=== PATIENT | female | born 1940 | race Caucasian/White ===

== ENCOUNTER 2017-04-27 10:44 | Outpatient (CLI) | payer OTHER ==
[~2017-04-27 10:44] MED LIST: ASA81 MG; BENADRYL50 MG; HYZAAR 100/25 T1 TAB PO; INDUR; INDUSTRIAL EYE15 ML OP; LIPITOR20 MG; NORVASC5 MG; PAXIL20 MG; PLAVIX75 MG PO; PNEU16DI2; PROTONIX40 MG; RESTORIL15 M1; SYNTHROID100 MCG; TOPROL XL50 M1; ULTRAM50 MG PO; ZITHROMAX500 MG PO; ZYRTEC10 MG PO
== END 2017-04-27 15:21 | disposition home or self-care (01) ==
LOC: RAD 10:44
DX: I10 Essential (primary) hypertension (principal)

== ENCOUNTER 2018-03-03 23:30 | Emergency (ER) | payer OTHER ==
[~2018-03-03] VITALS: Ht 162.6 cm; Wt 99.8 kg
[2018-03-04] MEDS ORDERED: ZOFRAN ODT4 MG PO (06:37)
[2018-03-04] MEDS ORDERED: PEPCID40 MG PO (06:37)
== END 2018-03-04 07:26 | disposition home or self-care (01) ==
LOC: ER 23:30
DX: K29.60 Other gastritis without bleeding (principal); R10.84 Generalized abdominal pain

== ENCOUNTER 2018-05-10 16:07 | Emergency (ER) | payer OTHER ==
[~2018-05-10] VITALS: Ht 162.6 cm; Wt 99.8 kg
[~2018-05-10 16:07] MED LIST changes: +PEPCID40 MG PO; +ZOFRAN ODT4 MG PO
== END 2018-05-10 20:14 | disposition home or self-care (01) ==
LOC: ER 16:07
DX: S20.211A Contusion of right front wall of thorax, initial encounter (principal); S80.01XA Contusion of right knee, initial encounter; W18.09XA Striking against other object with subsequent fall, initial encounter; Y93.89 Activity, other specified; Y92.018 Other place in single-family (private) house as the place of occurrence of the external cause; Y99.8 Other external cause status

== ENCOUNTER 2018-09-06 13:34 | Outpatient (CLI) | payer OTHER | END 2018-09-06 13:46 | disposition home or self-care (01) | LOC: TOM 13:34 | DX: J44.9 Chronic obstructive pulmonary disease, unspecified (principal) ==

== ENCOUNTER 2019-02-23 08:03 | Emergency (ER) | payer OTHER ==
[~2019-02-23] VITALS: Ht 160 cm; Wt 99.8 kg
[2019-02-23] MEDS ORDERED: XOPENEX CO1.25 MG/0. IH (17:19)
[2019-02-23] MEDS ORDERED: BUDESONIDE0.5 MG/2 M IH (17:19)
[2019-02-23] MEDS ORDERED: MEDROLPACK PO (17:19)
[2019-02-23] MEDS ORDERED: TESSALON PERLE100 M1 PO (17:19)
[2019-02-23] MEDS ORDERED: IPRATROPIU0.2 MG/1 M IH (17:19)
[2019-02-23] MEDS ORDERED: ZITHROMAX500 MG PO (17:19)
[2019-02-23] MEDS ORDERED: MUCINEX DM ER1 EAC1 PO (17:19)
== END 2019-02-23 17:25 ==
LOC: ER 08:03
DX: J45.901 Unspecified asthma with (acute) exacerbation (principal)

== ENCOUNTER 2019-03-03 18:07 | Emergency (ER) | payer OTHER ==
[~2019-03-03] VITALS: Ht 162.6 cm; Wt 105.2 kg
[~2019-03-03 18:07] MED LIST changes: +BUDESONIDE0.5 MG/2 M IH; +IPRATROPIU0.2 MG/1 M IH; +MEDROLPACK PO; +MUCINEX DM ER1 EAC1 PO; +TESSALON PERLE100 M1 PO; +XOPENEX CO1.25 MG/0. IH
== END 2019-03-03 23:54 | disposition home or self-care (01) ==
LOC: ER 18:07
DX: J45.901 Unspecified asthma with (acute) exacerbation (principal)

== ENCOUNTER 2019-08-11 12:15 | Emergency (ER) | payer OTHER ==
[~2019-08-11] VITALS: Ht 162.6 cm; Wt 102.1 kg
[2019-08-11] MEDS ORDERED: LEVO-T100 MCG PO (12:43)
[2019-08-11] MEDS ORDERED: LOSARTAN POTAS100 MG PO (12:43)
[2019-08-11] MEDS ORDERED: PROAIR HFA8.5 GM IH (12:43)
[2019-08-11] MEDS ORDERED: LASIX20 MG PO (12:43)
== END 2019-08-11 23:49 | disposition home or self-care (01) ==
LOC: ER 12:15
DX: R10.11 Right upper quadrant pain (principal); K76.89 Other specified diseases of liver

== ENCOUNTER 2020-06-30 17:36 | Emergency (ER) | payer OTHER ==
[~2020-06-30] VITALS: Ht 162.6 cm; Wt 102.1 kg
[~2020-06-30 17:36] MED LIST changes: +LASIX20 MG PO; +LEVO-T100 MCG PO; +LOSARTAN POTAS100 MG PO; +PROAIR HFA8.5 GM IH
== END 2020-07-01 12:46 | disposition home or self-care (01) ==
LOC: ER 17:36
DX: I87.2 Venous insufficiency (chronic) (peripheral) (principal); M79.605 Pain in left leg; R60.0 Localized edema

== ENCOUNTER 2021-06-21 23:08 | Inpatient (IN) | payer OTHER ==
[~2021-06-21] VITALS: Ht 152.4 cm; Wt 68.0 kg
[2021-06-22] MEDS ORDERED: WIXELA 250-501 EACH (14:12)
[2021-06-22] MEDS ORDERED: HUMULIN 70100 UNIT/1 (14:13)
[2021-06-22] MEDS ORDERED: SIMVASTATIN40 MG (14:13)
[2021-06-22] MEDS ORDERED: CITALOPRAM HBR20 MG (14:13)
[2021-06-22] MEDS ORDERED: CLOPIDOGREL BIS75 MG (14:13)
[2021-06-22] MEDS ORDERED: ST. JOSEPH ASPI81 M2 (14:14)
[2021-06-22] MEDS ORDERED: AMLODIPINE BESYL5 MG (14:14)
[2021-06-22] MEDS ORDERED: ISOSORBIDE MONO60 M2 (14:14)
[2021-06-22] MEDS ORDERED: ALENDRONATE SOD70 MG (14:14)
[2021-06-22] MEDS ORDERED: HYDROCHLOROTHIA25 MG (14:15)
[2021-06-22] MEDS ORDERED: LISINOPRIL10 MG (14:15)
[2021-06-22] MEDS ORDERED: FAMOTIDINE20 MG (14:15)
[2021-07-05] MEDS ORDERED: MEDROLPACK PO (10:35)
== END 2021-07-05 16:28 | disposition home or self-care (01) | DRG 202 ==
LOC: ER 23:08 → MEDJ 06-22 09:21 → MEDI 06-27 23:10
PROVIDERS: ADMIT Internal Medicine; ATTEND Internal Medicine
PROC: B24BZZZ Ultrasonography of Heart with Aorta (ICD-10-PCS; principal; 2021-06-23)
PROC: 4A12X4Z Monitoring of Cardiac Electrical Activity, External Approach (ICD-10-PCS; 2021-06-27)
DX: J45.51 Severe persistent asthma with (acute) exacerbation (principal); I47.1 Supraventricular tachycardia; R06.02 Shortness of breath; R07.89 Other chest pain; I25.10 Atherosclerotic heart disease of native coronary artery without angina pectoris; I10 Essential (primary) hypertension; E03.8 Other specified hypothyroidism; Z20.822 Contact with and (suspected) exposure to COVID-19; E78.49 Other hyperlipidemia; E66.01 Morbid (severe) obesity due to excess calories

== ENCOUNTER 2022-02-19 10:15 | Emergency (ER) | payer OTHER ==
[~2022-02-19] VITALS: Ht 160 cm; Wt 102.1 kg
[~2022-02-19 10:15] MED LIST changes: +ALENDRONATE SOD70 MG; +AMLODIPINE BESYL5 MG; +CITALOPRAM HBR20 MG; +CLOPIDOGREL BIS75 MG; +FAMOTIDINE20 MG; +HUMULIN 70100 UNIT/1; +HYDROCHLOROTHIA25 MG; +ISOSORBIDE MONO60 M2; +LISINOPRIL10 MG; +SIMVASTATIN40 MG; +ST. JOSEPH ASPI81 M2; +WIXELA 250-501 EACH
== END 2022-02-19 15:44 | disposition home or self-care (01) ==
LOC: ER 10:15
DX: J18.9 Pneumonia, unspecified organism (principal); Z20.822 Contact with and (suspected) exposure to COVID-19; I10 Essential (primary) hypertension; E03.9 Hypothyroidism, unspecified; Z91.013 Allergy to seafood; Z88.2 Allergy status to sulfonamides; Z88.5 Allergy status to narcotic agent; Z88.0 Allergy status to penicillin; Z91.018 Allergy to other foods

== ENCOUNTER 2022-08-19 15:35 | Emergency (ER) | payer OTHER ==
[~2022-08-19] VITALS: Ht 162.6 cm; Wt 100.7 kg
[2022-08-19] MEDS ORDERED: SYNTHROID100 MCG PO (16:02)
== END 2022-08-19 19:03 | disposition home or self-care (01) ==
LOC: ER 15:35
DX: R05.9 Cough, unspecified (principal); Z88.0 Allergy status to penicillin; Z91.041 Radiographic dye allergy status; Z91.013 Allergy to seafood; Z91.018 Allergy to other foods; Z20.822 Contact with and (suspected) exposure to COVID-19

== ENCOUNTER 2022-08-21 14:01 | Inpatient (IN) | payer OTHER ==
[~2022-08-21] VITALS: Ht 162.6 cm; Wt 102.1 kg
[~2022-08-21 14:01] MED LIST changes: +SYNTHROID100 MCG PO
[2022-08-22] MEDS ORDERED: BUDESONIDE0.5 MG/21 (10:17)
[2022-08-22] MEDS ORDERED: HUMULIN 70100 UNIT/1 (10:17)
[2022-08-22] MEDS ORDERED: CYCLOBENZAPRINE10 MG (10:18)
[2022-08-22] MEDS ORDERED: DICYCLOMINE HCL20 MG (10:18)
[2022-08-22] MEDS ORDERED: LISINOPRIL10 MG (10:18)
[2022-08-22] MEDS ORDERED: PANTOPRAZOLE SO40 MG (10:19)
[2022-08-22] MEDS ORDERED: CARVEDILOL6.25 M1 (10:19)
[2022-08-22] MEDS ORDERED: WIXELA 250-501 EACH (10:19)
[2022-08-22] MEDS ORDERED: ST. JOSEPH ASPI81 M2 (10:20)
== END 2022-08-24 18:42 | disposition home or self-care (01) | DRG 203 ==
LOC: ER 14:01 → MEDJ 21:07
PROVIDERS: ADMIT Specialist; ATTEND Specialist
PROC: B24BZZZ Ultrasonography of Heart with Aorta (ICD-10-PCS; principal; 2022-08-22)
DX: J45.901 Unspecified asthma with (acute) exacerbation (principal); I25.10 Atherosclerotic heart disease of native coronary artery without angina pectoris; I11.9 Hypertensive heart disease without heart failure; E03.9 Hypothyroidism, unspecified; J20.9 Acute bronchitis, unspecified; E66.01 Morbid (severe) obesity due to excess calories

== ENCOUNTER 2023-04-12 22:52 | Emergency (ER) | payer OTHER ==
[~2023-04-12] VITALS: Ht 152.4 cm; Wt 99.8 kg
[~2023-04-12 22:52] MED LIST changes: +BUDESONIDE0.5 MG/21; +CARVEDILOL6.25 M1; +CYCLOBENZAPRINE10 MG; +DICYCLOMINE HCL20 MG; +PANTOPRAZOLE SO40 MG
[2023-04-13] MEDS ORDERED: RINGERS SOLUTION,LACTATED 1,000 ML IV STA (00:12)
[2023-04-13] MEDS ORDERED: KETOROLAC TROMETHAMINE 30 MG VIAL IV STA (00:13)
[2023-04-13] MEDS ORDERED: HYOSCYAMINE SULFATE 0.125 MG TAB.SUBL SL STA (00:13)
[2023-04-13] MEDS ORDERED: LOPERAMIDE HCL 2 MG CAPSULE PO STA (00:16)
[2023-04-13 01:01] LABS: HEMATOCRIT 38.9 % (36.0-45.00); HEMOGLOBIN 13.2 g/dL (12.0-15.00); MEAN CELL VOLUME 84.5 fL (80.00-100.00); MEAN CORPUSCULAR HEMOGLOBIN 28.7 pg (27.00-32.0); PLATELET COUNT 241 K/uL (150-450)
[2023-04-13 01:42] LABS: ALBUMIN 3.3 gm/dL (3.4-5.0); BILIRUBIN TOTAL 0.46 mg/dL (0.3-1.2); CALCIUM 8.5 mg/dL (8.5-10.1); CREATININE SERUM 1.31 mg/dL (0.55-1.02); GFR 38.97; GLOBULINA 4.1 G/DL (2.4-3.5); POTASSIUM 4.08 mEq/L (3.5-5.1); TOTAL PROTEIN 7.4 gm/dL (6.4-8.2)
== END 2023-04-13 05:49 | disposition home or self-care (01) ==
LOC: ER 22:52
DX: K59.1 Functional diarrhea (principal); Z88.0 Allergy status to penicillin; Z88.2 Allergy status to sulfonamides; Z91.041 Radiographic dye allergy status; Z91.013 Allergy to seafood; Z91.018 Allergy to other foods; M19.90 Unspecified osteoarthritis, unspecified site; I10 Essential (primary) hypertension; E78.00 Pure hypercholesterolemia, unspecified; E11.9 Type 2 diabetes mellitus without complications; Z79.4 Long term (current) use of insulin
CPT/HCPCS: 36415; 93005; 96365; 99282; J1885